=== PATIENT | male | born 1975 ===

== ENCOUNTER 2020-05-27 13:04 | Outpatient (CLI) | payer OTHER ==
[~2020-05-27] VITALS: Ht 190.5 cm; Wt 95.3 kg
--- NOTE | 2020-05-27 17:30 | Consultation ---
DATE OF CONSULTATION: 05/27/2020 GASTROENTEROLOGY CONSULTATION CONSULTING PHYSICIAN: David Hudson MD. CHIEF COMPLAINT: Diarrhea. HISTORY OF PRESENT ILLNESS: This is a 44-year-old homosexual male with past medical history of HIV, depression, history of crystal methamphetamine abuse, but currently sober, presents with complaint of diarrhea for about a year. According to the patient, he has not had a change in his diet. Actually, he has been eating healthier per se, but he has been having some loose stools for about a year and a half. No new medication since then. No recent travel. No prior history of colonoscopy. No fevers, no chills, no bloody stools. PAST MEDICAL HISTORY: 1. HIV. 2. Depression and anxiety. 3. History of polysubstance abuse. PAST SURGICAL HISTORY: None. MEDICATIONS: Please see medication reconciliation list. FAMILY HISTORY: No family history of GI malignancies. SOCIAL HISTORY: The patient drinks alcohol socially. Used tobacco, quit about three months ago. He also used crystal methamphetamine, but he has not had for a while. ALLERGIES: He has multiple food allergies. REVIEW OF SYSTEMS: As dictated in HPI. PHYSICAL EXAMINATION: VITAL SIGNS: Temperature 96.8, blood pressure __/73, pulse 64, respirations 20. HEENT: Normocephalic and atraumatic. Sclerae anicteric. NECK: Supple. No evidence of obvious lymphadenopathy. CARDIOVASCULAR: Regular rate and rhythm. Plus S1 and S2. LUNGS: Clear to auscultation bilaterally. ABDOMEN: Positive bowel sounds. Soft and nontender. No rebound. No guarding. No peritoneal sign. EXTREMITIES: No cyanosis, no clubbing, no edema. ASSESSMENT AND PLAN: This is a 44-year-old male with chronic diarrhea. Plan to send for the celiac panel to rule out gluten sensitivity. Given this chronicity and 10 pounds of weight loss, we are also going to go ahead and schedule him for colonoscopy when authorization is obtained. David Hudson M.D. DR: CYNDY JOB#: [id number] CC:
[2020-05-28] MEDS ORDERED: VALTREX500 MG ORAL (09:58)
[2020-05-28] MEDS ORDERED: VITAMIN B COMP1 EAC5 PO (09:58)
[2020-05-28] MEDS ORDERED: LAMICTAL150 MG ORAL (09:58)
[2020-05-28] MEDS ORDERED: DESCOVY PO (09:58)
[2020-05-28] MEDS ORDERED: LEXAPRO10 MG ORAL (09:58)
[2020-05-28] MEDS ORDERED: CIALIS20 MG ORAL (09:58)
[2020-05-28] MEDS ORDERED: PREZISTA600 MG ORAL (09:58)
[2020-05-28] MEDS ORDERED: VITAMIN D350 MC1 PO (09:58)
[2020-05-28] MEDS ORDERED: NORVIR100 M2 ORAL (09:58)
[2020-05-28] MEDS ORDERED: THERA-M1 EACH PO (09:58)
[2020-05-28 09:59] VITALS: BP 119/73
== END 2020-05-27 15:04 | disposition home or self-care (01) ==
LOC: PAN 13:04
DX: R19.7 Diarrhea, unspecified (principal); B20 Human immunodeficiency virus [HIV] disease; F32.9 Major depressive disorder, single episode, unspecified; F41.9 Anxiety disorder, unspecified
CPT/HCPCS: G0463

== ENCOUNTER 2020-07-22 12:25 | Outpatient (CLI) | payer OTHER ==
[~2020-07-22 12:25] MED LIST: CIALIS20 MG ORAL; DESCOVY PO; LAMICTAL150 MG ORAL; LEXAPRO10 MG ORAL; NORVIR100 M2 ORAL; PREZISTA600 MG ORAL; THERA-M1 EACH PO; VALTREX500 MG ORAL; VITAMIN B COMP1 EAC5 PO; VITAMIN D350 MC1 PO
--- NOTE | 2020-07-22 13:02 | General Progress Note ---
Assessment/Plan Assessment/Plan: diarrhea colonoscopy reviewed celiac panel neg trial of lactuose free diet Augmentin if above fails Subjective ROS Limited/Unobtainable: Yes Allergies: Coded Allergies: SULFAMETHOXAZOLE (Verified Allergy, Mild, 05/28/20) NAUSEA TRIMETHOPRIM (Verified Allergy, Mild, 05/28/20) NAUSEA AVOCADO (Verified Allergy, Unknown, 05/28/20) CARROT (Verified Allergy, Unknown, 05/28/20) Cultivated Oat Pollen (Verified Allergy, Unknown, 05/28/20) Dust (Verified Allergy, Unknown, 05/28/20) Objective General Appearance: alert EENT: normal ENT inspection Neck: supple Cardiovascular: normal rate Respiratory/Chest: decreased breath sounds Abdomen: normal bowel sounds, non tender, soft Extremities: non-tender David Hudson MD Jul 22, 2020 13:02
== END 2020-07-22 14:25 | disposition home or self-care (01) ==
LOC: PAN 12:25
DX: R19.7 Diarrhea, unspecified (principal); Z88.2 Allergy status to sulfonamides; Z88.8 Allergy status to other drugs, medicaments and biological substances; Z91.018 Allergy to other foods
CPT/HCPCS: 99212